=== PATIENT | female | born 1940 | race Caucasian/White ===

== ENCOUNTER 2018-08-07 15:34 | Emergency (ER) | payer OTHER ==
[~2018-08-07] VITALS: Ht 157.5 cm; Wt 75.7 kg
[~2018-08-07 15:34] MED LIST: ALLOPURINOL100 MG PO; ALPRAZOLAM0.25 MG PO; ASPIR 8181 MG PO; CELEXA20 MG PO; CIPRO500 MG PO; CLOPIDOGREL75 M1 PO; COLACE100 MG PO; FLUTICASON0.05 MG/Ac; FUROSEMIDE20 MG PO; IMODIUM2 MG PO; LAC PO; LIPI20 PO; METOPROLOL TART25 M1 PO; MONTELUKAST SOD10 M1 PO; MULTI VITAMINS1 TA1 PO; MULTIVITAMIN1 SGL PO; NICODERM C14 MG/24 H TD; NICODERM C21 MG/241 TOP; NOR5 PO; NORCO1 TA2 PO; PANTOPRAZOLE SO40 M1 PO; TIZANIDINE HCL4 MG PO; ZES10 PO; ZOF4 PO
[2018-08-07 15:45] VITALS: Ht 157.5 cm; Wt 75.7 kg
[2018-08-07 18:17] VITALS: BP 158/96
== END 2018-08-07 18:17 | disposition home or self-care (01) ==
LOC: ED 15:34
DX: M54.2 Cervicalgia (principal); R51 Headache; I10 Essential (primary) hypertension; I48.91 Unspecified atrial fibrillation; Z86.73 Personal history of transient ischemic attack (TIA), and cerebral infarction without residual deficits; Z98.890 Other specified postprocedural states
CPT/HCPCS: 20552; J2001; J3301; J3490

== ENCOUNTER 2018-08-10 07:21 | Emergency (ER) | payer OTHER ==
[~2018-08-10] VITALS: Ht 154.9 cm; Wt 74.8 kg
[2018-08-10 07:29] VITALS: Ht 154.9 cm; Wt 74.8 kg
[2018-08-10 10:57] VITALS: BP 114/68
== END 2018-08-10 10:57 | disposition home or self-care (01) ==
LOC: ED 07:21
DX: G89.29 Other chronic pain (principal); M54.2 Cervicalgia; I49.9 Cardiac arrhythmia, unspecified; I10 Essential (primary) hypertension; Z86.73 Personal history of transient ischemic attack (TIA), and cerebral infarction without residual deficits; Z95.1 Presence of aortocoronary bypass graft
CPT/HCPCS: J2270; Q0162

== ENCOUNTER 2018-08-13 02:09 | Emergency (ER) | payer OTHER ==
[~2018-08-13] VITALS: Ht 160 cm; Wt 77.1 kg
[2018-08-13 02:17] VITALS: Ht 160 cm; Wt 77.1 kg
[2018-08-13 03:30] VITALS: BP 188/98
== END 2018-08-13 03:30 | disposition home or self-care (01) ==
LOC: ED 02:09
DX: G89.29 Other chronic pain (principal); M54.2 Cervicalgia; I10 Essential (primary) hypertension; J44.9 Chronic obstructive pulmonary disease, unspecified; I48.91 Unspecified atrial fibrillation; Z86.73 Personal history of transient ischemic attack (TIA), and cerebral infarction without residual deficits; Z95.818 Presence of other cardiac implants and grafts
CPT/HCPCS: J2270

== ENCOUNTER 2019-01-12 19:35 | Inpatient (IN) | payer OTHER ==
[~2019-01-12] VITALS: Ht 157.5 cm; Wt 77.1 kg
[2019-01-12 20:02] VITALS: Ht 157.5 cm; Wt 77.1 kg
--- NOTE | 2019-01-12 21:18 | NUR ---
Patient seen with complaint of vomiting x 1 week per family. Patient seen requesting ice chips. Waiting to be seen by MD.
[2019-01-12 22:05] LABS: PLATELET COUNT 210 x10^3mcL (130-400); RED CELL DISTRIBUTION WIDTH 13.6 % (11.5-14.5)
[2019-01-12 22:06] LABS: BASOPHIL % 0 % (0-2)
[2019-01-12 22:11] LABS: CALCIUM 8.4 mg/dL (8.5-10.1); CARBON DIOXIDE 29.2 mmol/L (21-32); CHLORIDE SERUM 104 mmol/L (98-107); CREATININE SERUM 1.2 mg/dL (0.6-1.0); GLUCOSE SERUM 134 mg/dL (74-106); POTASSIUM SERUM 3.2 mmol/L (3.5-5.1); SODIUM SERUM 142 mmol/L (136-145)
[2019-01-12 22:15] LABS: ALKALINE PHOSPHATASE 136 U/L (46-116); ALT/SGPT 144 U/L (14-59); AST/SGOT 134 U/L (15-37); BILIRUBIN TOTAL 1.2 mg/dL (0.20-1.00); LIPASE 130 IU/L (73-393); TOTAL PROTEIN, SERUM 7.2 g/dL (6.4-8.2)
[2019-01-12 22:18] LABS: AMYLASE 137 U/L (25-115)
--- NOTE | 2019-01-12 22:20 | NUR ---
PATIENT WAS SEEN BY . AUTO VINYL TOP INSTALLER COLLECTED BLOOD. SALINE LOCK INSERTED AND PATIENT HAS A SALINE BOLUS INFUSING.
--- NOTE | 2019-01-12 22:22 | NUR ---
RECTAL TEMP REQUESTED BY MD MARTINEZ IS 100.9
--- NOTE | 2019-01-12 23:42 | NUR ---
PATIENT MEDICATED WITH POTASSIUM AND TYLENOL. REPORT GIVEN TO FIDENCIO. PATIENT WILL BE TRANSPORTED TO ROOM 237.
[2019-01-13] VITALS (7 sets, daily range): BP systolic 120–166; BP diastolic 56–76
[2019-01-13 00:26] LABS: T3 TOTAL 0.46 ng/mL
[2019-01-13 00:28] LABS: CHOLESTEROL/HDL RATIO 4.3
[2019-01-13 00:51] LABS: FREE T4 0.98 ng/dL (0.76-1.46); FREE THYROXINE INDEX 2.2 ug/dL (1.4-4.5); T4(THYROXINE) 6.2 ug/dL (4.7-13.3)
--- NOTE | 2019-01-13 01:40 | NUR ---
RECIEVED PT FROM [facility] IN NO ACUTE DISTRESS. AWAKE/ALERT. MED SURG. BREATHING E/U ON NC @ 1.5 L. DENIES PAIN. IV TO LFA, PATENT. PT AWARE OF NEED FOR URINE SPECIMEN. ORIENTED TO ROOM. BED IN LOWEST POSITION, 2 SIDE RAILS UP, CALL LIGHT IN REACH. INSTRUCTED TO CALL FOR ASSISTANCE.
[2019-01-13 06:45] LABS: CALCIUM 8.4 mg/dL (8.5-10.1); CHLORIDE SERUM 108 mmol/L (98-107); GLUCOSE SERUM 146 mg/dL (74-106); POTASSIUM SERUM 3.6 mmol/L (3.5-5.1); SODIUM SERUM 145 mmol/L (136-145)
[2019-01-13 07:04] LABS: BASOPHIL % 0 % (0-2); PLATELET COUNT 196 x10^3mcL (130-400); RED CELL DISTRIBUTION WIDTH 13.8 % (11.5-14.5)
--- NOTE | 2019-01-13 07:26 | NUR ---
NO ACUTE DISTRESS NOTED. NO ACUTE CHANGES. WILL ENDORSE TO ONCOMING RN,
--- NOTE | 2019-01-13 07:30 | NUR ---
PT ENDORSE TO ME THIS MORNING/ SITTING UP IN BED. AA/O X4, ASSISTED PT OVER TO THE BATHROOM/ GEN WEAKNESS NOTED/ USES WALKER AT HOME, PENDING PT EVAL TODAY. BREATHING EVEN AND UNLABORED REMAINS ON 2L NC/ AT TIMES REMOVES/ TOLERATING WELL. MEDSURG. DENIES ANY CP OR PRESSURE/ SCDS APPLIED. BOWEL SOUNDS ACTIVE IN ALL FOUR QUADS, LARGE BM THIS AM. VOIDS REG AT TIMES/ INCONT AT TIMES. GEN WEAKNESS. L ELBOW SKIN TEAR NOTED/ RAI. FOUND PT IV TO LFA ON THE FLOOR, WILL REPLACE/ SKIN INTACT/ CATHETER TIP INTACT. CALL LIGHT IN REACH. BED IN LOW POSITION. WILL CONTINUE TO MONITOR.
--- NOTE | 2019-01-13 08:30 | NUR ---
NEW IV TO THE RFA 20 G, INFUSING AT 100ML/HR NS. WILL CONTINUE TO MONITOR.
[2019-01-13 12:36] LABS: microscopic required? NO
[2019-01-13 13:01] LABS: urine erythrocyte NEGATIVE (NEGATIVE)
[2019-01-13 13:10] LABS: AMPHETAMINE QUAL UR NONE DETECTED (See below)
--- NOTE | 2019-01-13 13:29 | NUR ---
PT SITTING UP IN BED HAVING BREATHING TX, ONLY TOLERATED 40% OF HER LUNCH. FAMILY AT BEDSIDE. WILL CONTINUE TO MONITOR.
--- NOTE | 2019-01-13 18:33 | NUR ---
NO ACUTE CHANGES AT THIS TIME. NO ACUTE RESP DISTRSS OR SOB NOTED/ PT REMAINS ON RA/ TOERATING WELL. DENIES ANY CP OR PRESSURE/ DISCOMFORT. NEW IV TO THE RFA INTACT AND PATENT/ NO REDNESS OR SWELLING NOTED/WRAPPED/INTACT. FAMILY AT BEDSIDE. WILL ENDORSE TO INCOMING R.N.
--- NOTE | 2019-01-13 19:20 | NUR ---
RECIEVED PT IN NO ACUTE DISTRESS. AOX3-4. MED SURG. BREATHING E/U ON RA. C/O EPIGASTRIC PAIN, DR HENRIQUEZ NOTIFIED, EKG ORDERED. DENIES ALL OTHER PAIN. IV TO RFA, PATENT. BED IN LOWEST POSITION, 2 SIDE RAILS UP, CALL LIGHT IN REACH. INSTRUCTED TO CALL FOR ASSISTANCE.
--- NOTE | 2019-01-14 02:00 | NUR ---
RESTING WITH EYES CLOSED. BREATHING E/U. NO ACUTE DISTRESS NOTED. WILL CONTINUE TO MONITOR.
[2019-01-14 04:46] VITALS: BP 180/84
--- NOTE | 2019-01-14 06:20 | NUR ---
NO FEVER OR NAUSEA OVERNIGHT. SBP 180 THIS AM, ADMINISTERED [address] HENRIQUEZ. NO ACUTE DISTRESS NOTED. NO ACUTE CHANGES. WILL ENDORSE TO ONCOMING RN
[2019-01-14 06:31] LABS: BASOPHIL % 0.1 % (0-2); PLATELET COUNT 208 x10^3mcL (130-400); RED CELL DISTRIBUTION WIDTH 13.5 % (11.5-14.5)
[2019-01-14 07:04] LABS: CALCIUM 8.2 mg/dL (8.5-10.1); CARBON DIOXIDE 26.5 mmol/L (21-32); CHLORIDE SERUM 110 mmol/L (98-107); GLUCOSE SERUM 124 mg/dL (74-106); PHOSPHOROUS 2.3 mg/dL (2.5-4.9); POTASSIUM SERUM 3.3 mmol/L (3.5-5.1); SODIUM SERUM 145 mmol/L (136-145)
--- NOTE | 2019-01-14 09:00 | NUR ---
PT ENDORSE TO ME THIS MORNING LAYING IN BED RESTING/ AA/O X4. AMB TO BATHROOM AND BACK, ADVICE PT NEEDS TO CALL FOR ASSIST DUE TO BEING UNSTEADY, PT AGREED. BREATHING EVEN AND UNLABORED ON RA, NO ACUTE RESP DISTRESS OR SOB NOTED. MEDSURG/ DENIES ANY CP OR PRESSURE. IV TO THE RFA INTACT AND PATENT/ INFUSING AT 100 ML /HR, NO REDNESS OR SWELLING NOTED. FAMILY AT BEDSIDE/ WILL CONTINUE PLAN OF CARE.
[2019-01-14 09:01] VITALS: BP 179/89
[2019-01-14 09:13] VITALS: BP 166/65
[2019-01-14 12:05] VITALS: BP 152/78
--- NOTE | 2019-01-14 15:20 | NUR ---
PT LAYING IN BED RESTING/ FAMILY AT BEDSIDE. TOLERATED 30 % OF LUNCH/ ENCOURAGED PT TO TRY TO EAT SOME MORE, MEGACE PO WAS GIVEN.
[2019-01-14] MEDS ORDERED: FENOFIBRATE48 M1 PO (17:35)
[2019-01-14] MEDS ORDERED: PERCOCET1 TA5 PO (17:35)
[2019-01-14] MEDS ORDERED: CEPHALEXIN250 MG PO (17:35)
[2019-01-14] MEDS ORDERED: SINGULAIR10 MG PO (17:35)
[2019-01-14] MEDS ORDERED: PLA75 PO (17:36)
[2019-01-14] MEDS ORDERED: CARVEDILOL3.125 M1 PO (17:36)
[2019-01-14] MEDS ORDERED: NEU300 PO (17:36)
[2019-01-14] MEDS ORDERED: LASIX20 MG PO (17:36)
[2019-01-14] MEDS ORDERED: OXYBUTYNIN CHLOR5 MG PO (17:36)
[2019-01-14] MEDS ORDERED: LORAZEPAM1 MG PO (17:36)
[2019-01-14] MEDS ORDERED: ZANAFLEX4 MG PO (17:37)
[2019-01-14 17:45] VITALS: BP 157/75
--- NOTE | 2019-01-14 18:12 | NUR ---
NO ACUTE CHANGES AT THIS TIME. NO ACUTE RESP DISTRESS OR SOB NOTED/ REMAINS ON RA TOLERATING WELL. DENIES ANY PAIN OR DISCOMFORT AT THIS TIME/ FAMILY AT BEDSIDE. TOLERATED 20% OF DINNER. IV TO THE RFA INTACT AND PATENT/ INFUSING AT 100ML/HR, NO REDNESS OR SWELLING NOTED. WILL ENDORSE TO INCOMING RN.
--- NOTE | 2019-01-14 19:20 | NUR ---
RECIEVED PT IN NO ACUTE DISTRESS. AOX4. MED SURG. BREATHING E/U ON RA. DENIES PAIN. DENIES FEVER, DENIES VOMITTING. IV TO RFA, PATENT. BED IN LOWEST POSITION, 2 SIDE RAILS UP, CALL LIGHT IN REACH. INSTRUCTED TO CALL FOR ASSISTANCE.
[2019-01-14 20:37] VITALS: BP 161/77
--- NOTE | 2019-01-15 00:50 | NUR ---
RESTING WITH EYES CLOSED. BREATHING E/U. NO ACUTE DISTRESS NOTED. WILL CONTINUE TO MONITOR.
[2019-01-15 05:33] VITALS: BP 180/65
[2019-01-15 06:28] VITALS: BP 140/68
--- NOTE | 2019-01-15 06:45 | NUR ---
NO FEVER OR NAUSEA OVERNIGHT. SBP 202 THIS AM, ADMINISTERED 0900 LOPRESSOR AND NORVASC OKAY PER DR DOBBS. NO ACUTE DISTRESS NOTED. NO ACUTE CHANGES. WILL ENDORSE TO ONCOMING RN
--- NOTE | 2019-01-15 08:36 | NUR ---
AAO TIMES 4. MED SURG PATIENT. BLIND RIGHT EYE, KAW. FALL PRECAUTIONS, WITH FALLING STAR POSTED AT DOORWAY, YELLOW SOCKS ARE ON HER FEET. SHE KNOWS TO CALL FOR HELP FOR BRP. LUNGS CTA EXCEPT FOR LLL FINE CRACKLES. O2 SAT ON RA 95%. BS'S ACTIVE TIMES 4. TORREZ WITH SLIGHT RIGHT SIDED WEAKNESS, BRP ASSIST. PERIPHERAL PULSES PALPABLE. NO EDEMA. IV SITE RFA CDI, PATENT.
[2019-01-15 09:30] VITALS: BP 173/88
--- NOTE | 2019-01-15 09:41 | NUR ---
I CALLED JACQUE GAUTHIER, I TOLD HER THAT THE POTASSIUM SHE ORDERED PO WAS FROM [facility], SHE SAID TO HOLD IT NOW AND SHE WOULD ORDER LABS FOR TODAY.
[2019-01-15] MEDS ORDERED: PRE20 PO (09:56)
--- NOTE | 2019-01-15 10:00 | NUR ---
I VERBALLY TOLD ABRAHAN BLOOD DONOR RECRUITER THAT PATIENT'S LATEST BP IS 173/88, HR 65 AND THAT THE AIRFRAME DESIGN ENGINEER GAVE THE PO ANTI HYPERTENSIVE DRUGS AT 0530 THIS MORNING. NO NEW ORDERS.
[2019-01-15 13:11] VITALS: BP 173/88
--- NOTE | 2019-01-15 14:46 | NUR ---
GAVE DISCHARGE INSTRUCTIONS TO PATIENT AND FAMILY. THE FAMILY WILL TAKE HER TO [facility] AFTER 1700 TODAY, WHEN A BED IS AVAILABLE.
--- NOTE | 2019-01-15 14:53 | NUR ---
PHYSICAL THERAPY DAILY NOTES CO-SIGN All documentation done by the Market Development Director for 01/15/19 has been reviewed. I agree with the documentation. Reviewed/Co-Signed by: Candi Beltre PT Documentation Done by: JANNA BARTHOLOMEW PTA
--- NOTE | 2019-01-15 15:37 | NUR ---
GAVE REPORT TO [facility] AT [phone] TO NYASIA PORTILLO AT [phone]. SHE WILL NOT LEAVE HERE TO [facility] UNTIL AFTER 5:00 PM.
== END 2019-01-15 17:33 | DRG 73 ==
LOC: ED 19:35 → MU 23:09
PROVIDERS: Emergency Medicine; ADMIT Internal Medicine
DX: E11.43 Type 2 diabetes mellitus with diabetic autonomic (poly)neuropathy (principal); N17.0 Acute kidney failure with tubular necrosis; J44.1 Chronic obstructive pulmonary disease with (acute) exacerbation; N39.0 Urinary tract infection, site not specified; K31.84 Gastroparesis; K29.70 Gastritis, unspecified, without bleeding; E87.6 Hypokalemia; I10 Essential (primary) hypertension; H54.62 Unqualified visual loss, left eye, normal vision right eye; R74.0 Nonspecific elevation of levels of transaminase and lactic acid dehydrogenase [LDH]; F17.210 Nicotine dependence, cigarettes, uncomplicated; Z95.0 Presence of cardiac pacemaker; Z68.31 Body mass index [BMI] 31.0-31.9, adult; Z95.1 Presence of aortocoronary bypass graft; Z79.84 Long term (current) use of oral hypoglycemic drugs; Z86.73 Personal history of transient ischemic attack (TIA), and cerebral infarction without residual deficits
CPT/HCPCS: 83880; 84439; 94150; 97116-GP; 97530-GP; G0378; J0696; J1956; J2060; J2405; J2765; J2930; J3370; J7030; J7050; J7512; J7620

== ENCOUNTER 2019-05-27 09:20 | Inpatient (IN) | payer OTHER ==
[~2019-05-27] VITALS: Ht 160 cm; Wt 69.9 kg
[~2019-05-27 09:20] MED LIST changes: +CARVEDILOL3.125 M1 PO; +CEPHALEXIN250 MG PO; +FENOFIBRATE48 M1 PO; +LASIX20 MG PO; +LORAZEPAM1 MG PO; +NEU300 PO; +OXYBUTYNIN CHLOR5 MG PO; +PERCOCET1 TA5 PO; +PLA75 PO; +PRE20 PO; +SINGULAIR10 MG PO; +ZANAFLEX4 MG PO
[2019-05-27 09:25] VITALS: Ht 160 cm; Wt 69.9 kg
[2019-05-27 10:22] LABS: BASOPHIL % 0.4 % (0-2); PLATELET COUNT 280 x10^3mcL (130-400); RED CELL DISTRIBUTION WIDTH 13.2 % (11.5-14.5)
[2019-05-27 10:26] LABS: CARBON DIOXIDE 29.3 mmol/L (21-32); CHLORIDE SERUM 105 mmol/L (98-107); CREATININE SERUM 1.1 mg/dL (0.6-1.0); GLUCOSE SERUM 114 mg/dL (74-106); POTASSIUM SERUM 3.6 mmol/L (3.5-5.1); SODIUM SERUM 141 mmol/L (136-145)
[2019-05-27] MEDS ORDERED: PLAVIX75 M1 (11:28)
[2019-05-27 13:10] VITALS: BP 108/66
[2019-05-27 13:24] VITALS: BP 108/66
[2019-05-27 13:29] VITALS: BP 108/66
[2019-05-27 17:08] VITALS: BP 105/49
[2019-05-27 20:28] VITALS: BP 120/57
[2019-05-28 05:32] VITALS: BP 125/71
[2019-05-28 07:02] LABS: BASOPHIL % 0.4 % (0-2); PLATELET COUNT 231 x10^3mcL (130-400); RED CELL DISTRIBUTION WIDTH 13.4 % (11.5-14.5)
[2019-05-28 07:39] LABS: CALCIUM 8.8 mg/dL (8.5-10.1); CARBON DIOXIDE 24.4 mmol/L (21-32); CHLORIDE SERUM 105 mmol/L (98-107); GLUCOSE SERUM 117 mg/dL (74-106); POTASSIUM SERUM 3.7 mmol/L (3.5-5.1); SODIUM SERUM 141 mmol/L (136-145)
[2019-05-28 08:42] VITALS: BP 102/54
[2019-05-28 13:18] VITALS: BP 112/62
[2019-05-28 17:11] VITALS: BP 114/56
[2019-05-28 20:11] VITALS: BP 124/64
[2019-05-29 05:43] VITALS: BP 149/73
[2019-05-29 06:35] LABS: BASOPHIL % 0.7 % (0-2); PLATELET COUNT 218 x10^3mcL (130-400); RED CELL DISTRIBUTION WIDTH 13.4 % (11.5-14.5)
[2019-05-29 06:36] LABS: CALCIUM 8.3 mg/dL (8.5-10.1); CARBON DIOXIDE 24.8 mmol/L (21-32); CHLORIDE SERUM 109 mmol/L (98-107); GLUCOSE SERUM 91 mg/dL (74-106); POTASSIUM SERUM 3.6 mmol/L (3.5-5.1); SODIUM SERUM 143 mmol/L (136-145)
[2019-05-29 08:09] VITALS: BP 150/65
[2019-05-29] MEDS ORDERED: METOPROLOL TART25 M1 PO (10:25)
[2019-05-29] MEDS ORDERED: ZES5 PO (10:26)
[2019-05-29] MEDS ORDERED: ZOF4 PO (10:27)
[2019-05-29] MEDS ORDERED: LIPI10 PO (10:28)
[2019-05-29 11:53] VITALS: BP 104/64
== END 2019-05-29 16:05 | disposition home or self-care (01) | DRG 202 ==
LOC: ED 09:20 → DU 11:30 → MU 11:30 → DU 12:36 → MU 05-28 16:36
PROVIDERS: Emergency Medicine; ADMIT Family Medicine
DX: J20.9 Acute bronchitis, unspecified (principal); J44.0 Chronic obstructive pulmonary disease with (acute) lower respiratory infection; R09.1 Pleurisy; I11.9 Hypertensive heart disease without heart failure; I25.10 Atherosclerotic heart disease of native coronary artery without angina pectoris; F17.218 Nicotine dependence, cigarettes, with other nicotine-induced disorders; E78.5 Hyperlipidemia, unspecified; Z95.1 Presence of aortocoronary bypass graft; Z95.0 Presence of cardiac pacemaker; Z86.73 Personal history of transient ischemic attack (TIA), and cerebral infarction without residual deficits; Z68.23 Body mass index [BMI] 23.0-23.9, adult; Z57.31 Occupational exposure to environmental tobacco smoke
CPT/HCPCS: 97110-GP; 97116-GP; G0378; J0696; J2270; J2405; J7030; J7620; Q0092

== ENCOUNTER 2019-06-25 19:55 | Emergency (ER) | payer OTHER ==
[~2019-06-25] VITALS: Ht 160 cm; Wt 68.9 kg
[~2019-06-25 19:55] MED LIST changes: +LIPI10 PO; +PLAVIX75 M1; +ZES5 PO
[2019-06-25 19:58] VITALS: Ht 160 cm; Wt 68.9 kg
[2019-06-25 22:49] VITALS: BP 128/58
== END 2019-06-25 22:49 | disposition home or self-care (01) ==
LOC: ED 19:55
DX: K59.00 Constipation, unspecified (principal); I10 Essential (primary) hypertension; J44.9 Chronic obstructive pulmonary disease, unspecified